=== PATIENT | female | born 1975 | race Caucasian/White ===

== ENCOUNTER → 2017-02-15 | Outpatient (CLI) | payer BC | LOC: CIMAGING 13:19 | PROVIDERS: ATTEND Family Medicine | DX: Z12.39 Encounter for other screening for malignant neoplasm of breast (principal) | CPT/HCPCS: G0206 ==

== ENCOUNTER → 2017-08-30 | Outpatient (CLI) | payer BC | LOC: CIMAGING 09:01 | PROVIDERS: ATTEND Family Medicine | DX: Z12.31 Encounter for screening mammogram for malignant neoplasm of breast (principal) | CPT/HCPCS: G0202 ==

== ENCOUNTER → 2017-09-30 | Outpatient (CLI) | payer BC | LOC: CIMAGING 08:59 | PROVIDERS: ATTEND Family Medicine | DX: D68.9 Coagulation defect, unspecified (principal); R00.2 Palpitations; F41.9 Anxiety disorder, unspecified; D25.2 Subserosal leiomyoma of uterus; R93.8 Abnormal findings on diagnostic imaging of other specified body structures; Z90.721 Acquired absence of ovaries, unilateral | CPT/HCPCS: 76856-PO ==

== ENCOUNTER → 2018-09-13 | Outpatient (CLI) | payer OTHER | LOC: FIMAGING 12:50 | PROVIDERS: ATTEND Family Medicine | DX: N60.01 Solitary cyst of right breast (principal) ==